=== PATIENT | male | born 1985 | race Caucasian/White ===

== ENCOUNTER 2016-09-14 21:27 | Emergency (ER) | payer SELFPAY ==
[~2016-09-14] VITALS: Ht 177.8 cm; Wt 95.0 kg
[2016-09-14 21:33] VITALS: Ht 177.8 cm; Wt 95.0 kg
[2016-09-14] MEDS ORDERED: NAPR-260 PO (21:46)
[2016-09-14] MEDS ORDERED: CYCL-319 PO (21:46)
--- NOTE | 2016-09-14 21:53 | ERD ---
ER Documentation Chief Complaint Date/Time DATE: 09/14/16 TIME: 21:51 Chief Complaint back pain x 3 days sustained after carrying a heavy object in job HPI 30-year-old male comes in with left-sided low back pain 3 days ago after carrying a heavy object at work. Patient states that he was carrying a case of soda that [employer] sodas, his pain is described as moderate to severe, sharp, nonradiating, localized to the left side of the low back. He tried applying heat, taking Motrin. Denies saddle anesthesia, loss of bowel bladder function or paresthesias. ROS All systems reviewed and are negative except as per history of present illness. Medications Home Meds Active Scripts Naproxen* (Naprosyn*) 500 Mg Tablet, 500 MG PO BID Y for PAIN AND/OR INFLAMMATION, #30 TAB Prov:SACHI VAZQUEZ PA-C 09/14/16 Cyclobenzaprine Hcl* (Cyclobenzaprine Hcl*) 10 Mg Tablet, 10 MG PO TID, #15 TAB Prov:SACHI VAZQUEZ PA-C 09/14/16 Allergies Allergies: Coded Allergies: Penicillins (Verified Allergy, Unknown, 09/14/16) Physical Exam Vitals Vital Signs Date Time Temp Pulse Resp B/P Pulse Ox O2 Delivery O2 Flow Rate FiO2 09/14/16 21:33 98.3 87 20 174/76 100 Physical Exam General: Well-developed, well-nourished. The patient appears in no acute distress. HEENT: Head is normocephalic, atraumatic. No scleral icterus. Neck: Supple. Nontender. Lungs: Clear to auscultation. Normal air movement. Heart: Regular rate and rhythm. S1 and S2 are normal. No murmurs, gallops, or rubs. Abdomen: Soft, nontender, nondistended. Bowel sounds are normoactive. Back: No midline tenderness, step-off paraspinal tenderness to L4 and L5 on the left side. Strength to lower extremities 5 out of 5 bilaterally. Extremities: No clubbing or cyanosis. Normal pulses. Moving extremities x 4. No weakness. Neurologic: Alert and oriented 3. No focal deficits. Skin: Normal turgor. No rash or lesions. Procedures/MDM 30-year-old male comes in for lumbosacral strain on the left side 3 days ago from lifting heavy at work. There are no neurologic deficits, signs of cauda equina or epidural abscess. Patient was seen and suture, I did advise that we would be able to give him a prescription which she may take likely sooner than waiting, he feels comfortable at this time living with a pain medicine prescription, and I will be providing him a work note to return on Sunday and light duty for 1 week thereafter. Departure Diagnosis: Primary Impression: Injury of back Condition: Good Patient Instructions: Back Sprain/Strain Additional Instructions: Llame al doctor MAANA y reji roseline PANDA PARA DENTRO DE 1-2 TIPTON.Dgale a la secretaria que nosotros le instruimos hacer esta panda.Avise o llame si prescott condicin se empeora antes de la panda. Regresa aqui si peor o no mejor. SACHI VAZQUEZ PA-C Sep 14, 2016 21:53
== END 2016-09-14 21:46 | disposition home or self-care (01) ==
LOC: FTE 21:27 → E/R 21:46
DX: S39.92XA Unspecified injury of lower back, initial encounter (principal); X50.0XXA Overexertion from strenuous movement or load, initial encounter; Y92.89 Other specified places as the place of occurrence of the external cause
CPT/HCPCS: 99283